=== PATIENT | female | born 1955 | race Asian ===

== ENCOUNTER 2022-05-05 20:01 | Emergency (ER) | payer OTHER, MEDICARE, SELFPAY ==
[2022-05-05] VITALS (16 sets, daily range): BP systolic 131–191; BP diastolic 81–108; PULSE 114–129; RESP 16; TEMP 37.1; O2SAT 94–97; BMI 15.3
--- NOTE | 2022-05-05 20:03 | DI.RAD.S_ITS ---
PROCEDURE: XR HAND RT MIN 3V INDICATIONS: hand injury TECHNIQUE: 3 views of the hand(s) acquired. COMPARISON: None. FINDINGS: Bones: No dislocations. Carpal bones are normally aligned. No suspicious bony lesions. There is a slightly displaced longitudinal fracture through the middle 3rd and proximal 3rd diaphysis right 3rd metacarpal, likely extending into the proximal articular surface. Soft tissues: No suspicious soft tissue calcifications. IMPRESSION: 3rd metacarpal longitudinal fracture, in close anatomic alignment. Probable intra-articular extension of this fracture plane given the visualized proximity of the fracture to that articular surface. Dictated by: Danilo Olson M.D. on 05/05/2022 at 20:53 Approved by: Danilo Olson M.D. on 05/05/2022 at 20:54
--- NOTE | 2022-05-05 20:04 | DI.CT.S_ITS ---
PROCEDURE: CT HEAD/BRAIN WO CON INDICATIONS: Trauma TECHNIQUE: Noncontrast 4.5 mm thick angled axial sections acquired from the foramen magnum to the vertex, with coronal and sagittal reformats. For radiation dose reduction, the following was used: automated exposure control, adjustment of mA and/or kV according to patient size. COMPARISON: None. FINDINGS: Image quality: Excellent. CSF spaces: Basal cisterns are patent. No extra-axial fluid collections. Ventricles are normal in size and shape. Brain: No midline shift. No intracranial masses or hemorrhage. Freire-white matter interface is normal. Skull and face: Calvarium and visualized facial bones are intact, without suspicious lesions. Sinuses: Visualized sinuses and mastoids are clear. IMPRESSION: No trauma found. Dictated by: Danilo Olson M.D. on 05/05/2022 at 21:11 Approved by: Danilo Olson M.D. on 05/05/2022 at 21:11
--- NOTE | 2022-05-05 20:04 | DI.RAD.S_ITS ---
PROCEDURE: XR CHEST 1V INDICATIONS: trauma TECHNIQUE: One view of the chest was acquired. COMPARISON: None. FINDINGS: Surgical changes and devices: None. Lungs and pleura: Lungs are difficult to accurately assess due to body habitus and prominently reduced inspiratory volume. There may be a mild pulmonary edema pattern but crowding of the bronchovascular markings also could explain this appearance given reduced inspiration. No pleural effusions or pneumothorax. Mediastinum: Mediastinal contours appear normal. Heart size is normal. Bones and chest wall: No suspicious bony lesions. Overlying soft tissues appear unremarkable. IMPRESSION: No definite acute disease. Prominently reduced inspiratory volume-possible superimposed mild pulmonary edema versus crowding of the bronchovascular markings. Dictated by: Danilo Olson M.D. on 05/05/2022 at 20:54 Approved by: Danilo Olson M.D. on 05/05/2022 at 20:55
--- NOTE | 2022-05-05 20:04 | DI.CT.S_ITS ---
PROCEDURE: CT CHEST ABD PEL W CON INDICATIONS: Trauma TECHNIQUE: After the administration of intravenous contrast, 5 mm thick sections acquired from the lung apices to the symphysis. 5 mm coronal and sagittal reformats were performed, with additional 7 mm MIP reformats through the lungs. For radiation dose reduction, the following was used: automated exposure control, adjustment of mA and/or kV according to patient size. COMPARISON: [facility], CR, XR PELVIS 1-2V, 05/05/2022, 20:08. [facility], CR, XR CHEST 1V, 05/05/2022, 20:08. FINDINGS: Image quality: Excellent. CHEST: Lungs and pleura: No acute airspace opacities. No pleural effusions or pneumothorax. Central and peripheral airways appear patent and normal in caliber. Mediastinum: Heart size is normal. No pericardial effusion. No mediastinal or hilar adenopathy by size criteria. Thoracic aorta and central pulmonary arteries are normal in size. Esophagus is normal in caliber. No hiatal hernia. Chest wall: No axillary or supraclavicular adenopathy by size criteria. Thyroid gland appears normal where well seen. ABDOMEN: Solid organs: Liver is normal in size and enhancement. Gallbladder appears normal . Biliary system is non dilated. Pancreas enhances normally. Spleen is normal in size and enhancement. No adrenal nodules. Kidneys demonstrate normal size and enhancement, without hydronephrosis. Peritoneum and bowel: Bowel loops demonstrate normal wall thickness and caliber. No free fluid or air. Nodes and vessels: No retroperitoneal or mesenteric adenopathy by size criteria. Aorta and inferior vena cava are normal in size. Miscellaneous: No ventral hernias. Note is made of a L1 acute appearing compression fracture with approximately 20% middle 3rd vertebral body height reduction and extension of the fracture planes into the posterior 3rd of the vertebral body with approximately 4 mm of retropulsion of the upper posterior L1 vertebral body into the spinal canal. PELVIS: Genitourinary: Bladder wall thickness is normal. Note is made of an abnormal morphology of the uterus, with low attenuation material dorsal to what appears to be a dominant fundal fibroid. This low-attenuation material is anatomic Alisa in the expected position of the endometrium, in this 66-year-old patient, measuring up to 1.7 cm in thickness. This has a craniocaudad height of 4.0 cm. Miscellaneous: No inguinal hernias or adenopathy. Bones: No suspicious bony lesions or fractures over the pelvis.. No vertebral body compression fractures. IMPRESSION: 1. Burst fracture L1 vertebral body, with fracture planes extending into the posterior 3rd of the vertebral body and with associated mild retropulsion of the upper posterior L1 vertebral body margin into the spinal canal. This is considered a potentially unstable fracture and surgical consultation is recommended. No subluxation or epidural hematoma is seen. 2. No visceral trauma found. 3. There is an unexpected finding at the uterus where a dominant anterior uterine fibroid can be seen and dorsal to this rounded structure is low attenuation material in the expected position of the endometrial lining. This finding raises a concern for presence of endometrial carcinoma and follow-up by dedicated elective pelvic ultrasound is recommended when clinically appropriate. No evidence of metastatic disease. Dictated by: Danilo Olson M.D. on 05/05/2022 at 21:15 Approved by: Danilo Olson M.D. on 05/05/2022 at 21:27
--- NOTE | 2022-05-05 20:04 | DI.CT.S_ITS ---
PROCEDURE: CT CERVICAL SPINE WO CON INDICATIONS: Trauma TECHNIQUE: Noncontrast 3 mm thick sections acquired from the skull base to the T4 level. Sagittal and coronal reformats were then constructed. For radiation dose reduction, the following was used: automated exposure control, adjustment of mA and/or kV according to patient size. COMPARISON: None. FINDINGS: Image quality: Excellent. Bones: No fractures or dislocations. Visualized superior ribs are intact. Soft tissues: Prevertebral soft tissues are normal in thickness. No paravertebral hematomas. No apical pneumothoraces. IMPRESSION: No trauma found. Dictated by: Danilo Olson M.D. on 05/05/2022 at 21:11 Approved by: Danilo Olson M.D. on 05/05/2022 at 21:12
--- NOTE | 2022-05-05 20:04 | DI.RAD.S_ITS ---
PROCEDURE: XR PELVIS 1-2V INDICATIONS: trauma TECHNIQUE: Single frontal view of the pelvis acquired. COMPARISON: None. FINDINGS: Bones: No fractures or dislocations. No suspicious bony lesions. Note is made of asymmetric moderate left hip joint osteoarthritis. Soft tissues: Visualized bowel gas pattern is normal. No suspicious soft tissue calcifications. IMPRESSION: No acute trauma found. Moderate osteoarthritis present at the left hip, minimal osteoarthritis at the right hip. Dictated by: Danilo Olson M.D. on 05/05/2022 at 20:51 Approved by: Danilo Olsno M.D. on 05/05/2022 at 20:52
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
[2022-05-05 21:30] LABS: Hematocrit 44.3 % (36-46); Hemoglobin 14.6 g/dL (12.0-16.0); Mean Corpuscular HGB Conc 32.9 % (30-36); Mean Corpuscular Hemoglobin 29.1 PG (26-34); Mean Corpuscular Volume 88.4 fL (80-100); Platelet Count 212 X10^3/uL (150-400); Red Blood Cell Count 5.01 X10^6/uL (4.0-5.2); Red Cell Distribution Width 13.5 % (11.6-14.8); White Blood Cell Count 14.2 X10^3/uL (4.5-11.0)
[2022-05-05 21:31] LABS: Add Manual Diff / Slide Review YES
[2022-05-05 21:37] LABS: Prothrombin Time 11.1 SECONDS (10.1-12.7)
[2022-05-05 21:40] LABS: Creatine Kinase 100 U/L (30-135); Lactate (Lactic Acid) 3.4 mmol/L (0.7-2.1); PTT Partial Thromboplastin Tim 33 SECONDS (26-36)
[2022-05-05 21:41] LABS: Alanine Aminotransferase 40 IU/L (<35); Albumin 4.3 g/dL (3.5-5.0); Albumin Globulin Ratio 1.2 (1.0-2.8); Alkaline Phosphatase 119 U/L (38-126); Aspartate Aminotransferase 63 IU/L (14-36); BUN Creatinine Ratio 23.3 (6-22); Bilirubin Total 0.4 mg/dL (0.2-1.3); Blood Urea Nitrogen 17 mg/dL (7-17); Calcium 8.8 mg/dL (8.4-10.2); Carbon Dioxide 27 mmol/L (22-32); Chloride 104 mmol/L (98-107); Estimated Glomerular Filt Rate > 60 mL/min (>60); Ethanol (ETOH) < 10 mg/dL; Globulin 3.7 g/dL (1.7-4.1); Glucose 172 mg/dL (80-110); HEMOLYSIS < 15 (0-50); Lipase 240 U/L (23-300); Potassium 3.8 mmol/L (3.4-5.1); Sodium 140 mmol/L (137-145)
[2022-05-05 21:53] LABS: Troponin I < 0.012 ng/mL (0.01-0.034)
[2022-05-05 23:03] LABS: Neutrophils Absolute Manual 12070 /uL (3000-5900); RBC Morphology Normal Morphology; Total Cells Counted 100
--- NOTE | 2022-05-05 23:07 | DI.RAD.S_ITS ---
PROCEDURE: XR LUMBAR SPINE 2-3V INDICATIONS: lumbar fracture, [facility] Spine requests standing plain films TECHNIQUE: 2 views of the lumbar spine were acquired. COMPARISON: [facility], CT, CT CHEST ABD PEL W CON, 05/05/2022, 20:09. FINDINGS: Bones: 5 [id number] vertebrae are present. There is normal bony alignment. There is an acute appearing L1 vertebral body compression fracture, with 48% anterior 3rd vertebral body height reduction, and a lesser degree but definite height reduction at the posterior 3rd of the L1 vertebral body also.. No suspicious bony lesions. Soft tissues: Overlying bowel gas pattern is normal. No suspicious soft tissue calcifications. IMPRESSION: 48% anterior height reduction involving the L1 vertebral body, lesser but definite posterior vertebral body height reduction is present also at L1. Please also refer to CT scanning earlier same day which documents mild retropulsion of the upper posterior 3rd of the L1 vertebral body into the spinal canal. These findings were discussed in detail with the emergency room physician caring for the patient. Dictated by: Danilo Olson M.D. on 05/05/2022 at 23:42 Approved by: Danilo Olson M.D. on 05/05/2022 at 23:46
[2022-05-05 23:22] LABS: Reflexed Lactate in 2 Hours Y
[2022-05-05] MEDS: SODIUM CHLORIDE 0.9% 1,000 ML 1000 ML IV (23:40)
[2022-05-05] MEDS: ONDANSETRON 4 MG/2 ML INJ IV (23:40)
[2022-05-05] MEDS: HYDROMORPHONE 0.5 MG INJ IV (23:40)
[2022-05-06 00:09] LABS: Lactate 2HR (Lactic Acid Rflx) 1.5 mmol/L (0.7-2.1)
[2022-05-06 00:30] VITALS: PULSE 104
[2022-05-06 00:41] VITALS: BP 131/74; PULSE 107; O2SAT 94
[2022-05-06] MEDS: HYDROCODONE/ACET 5/325 PREPACK 1 BOTTLE MISC (00:41)
[2022-05-06 01:01] VITALS: BP 152/81; O2SAT 95
[2022-05-06 01:07] VITALS: BP 152/81; O2SAT 96
[2022-05-06 02:24] VITALS: O2SAT 93
[2022-05-06 02:25] VITALS: BP 126/63; PULSE 99; O2SAT 93
== END 2022-05-06 02:30 | disposition home or self-care (01) ==
PROVIDERS: Emergency Provider Emergency Medicine
DX: S32.019A Unspecified fracture of first lumbar vertebra, initial encounter for closed fracture (principal); S62.302A Unspecified fracture of third metacarpal bone, right hand, initial encounter for closed fracture; N94.89 Other specified conditions associated with female genital organs and menstrual cycle; M25.552 Pain in left hip; M25.551 Pain in right hip; V89.2XXA Person injured in unspecified motor-vehicle accident, traffic, initial encounter
CPT/HCPCS: 29125; 36415; 70450; 71045; 71260; 72100; 72125; 72170; 73130; 74177; 80053; 80320; 82550; 83605; 83690; 84484; 85007; 85025; 85610; 85730; 86850; 86900; 86901; 93005; 93010; 96361; 96374; 96375; 99284; 99285; J1170; J2405; Q9967